=== PATIENT | female | born 1940 | race Caucasian/White ===

== ENCOUNTER → 2017-04-02 | Day surgery (SDC) | payer MEDICARE, OTHER ==
[~2017-04-02] VITALS: Ht 170.2 cm; Wt 84.1 kg
[~2017-04-02] MED LIST: ASPI-973 PO; Bupivacaine-MPF 0.5% 30 mL Inj INFILTRATE ONE; CA C1TAB83 PO; CHOL10008 PO; CYAN500L4 PO; CeFAZolin 2 Gm/50 mL D5W Duplex Bag IV ONE; CeFAZolin Inj 2 GM in IV Premix 1 EACH IV ONE; Dexamethasone 4 mg/mL Inj IVPUSH PRN; EPHEDrine Sulfate 50 mg/mL Inj IVPUSH PRN; HYDROmorphone 1 mg/mL Inj IVPUSH PRN; LISI2.5T PO; Lactated Ringer's 1,000 ML IV ONE; Lactated Ringer's 1,000 ML IV SCH; Lactated Ringer's 500 ML IV PRN; MAGN250T29 PO; MELA5TAB14 PO; METF500T4 PO; METH5TAB3 PO; METO-386 PO; MetoCLOpramide 5 mg/mL 2 mL Inj IVPUSH PRN; NPH,100V11 SUBQ; Ondansetron 2 mg/mL 2 mL Inj IVPUSH PRN; Phenylephrine 10,000 mCg/mL Inj IVPUSH PRN; Propofol 10,000 mCg/mL 20 mL Inj ONE; [UNRECOGNIZED DRUG - OTHER] RIGHT_EYE; fentaNYL-PF 50 mCg/mL 2 mL Inj IVPUSH PRN; fentaNYL-PF 50 mCg/mL 2 mL Inj ONE
--- NOTE | 2017-04-02 05:59 | PCM.HPANE ---
Patient Data Surgeon Admitting Provider: Attending Provider:Paul Cartwright MD Primary Care Physician:Kory Ruvalcaba MD Other Provider:[facility] Anesthesia Reason for Visit Right Thumb Nodule Ht/WT & BMI Height (Feet): 5 Height (Inches): 7 Weight (Kilograms): 81.6 Body Mass Index 28.00 Allergies Coded Allergies: No Known Allergies (Unverified , 03/31/17) Past Anesthesia History Anesthesia History: Denies:: Abnormal Airway, Anesthesia Reactions, Difficult Intubation, Fam Anesthesia Reaction, Malignant Hyperthermia Diabetes History Hx Diabetes?: Yes Type of Diabetes: Type II Glycemic Control: Insulin & Oral Medication Current Bedside Blood Glucose: 89 MRSA MRSA: No Medications Blood Thinner: Aspirin Last Dose Blood Thinner: Mar 31, 2017 Hypertension Medication: Yes (Metoprolol) Home Meds Incl Beta Andrew: Yes Reported Medications Cholecalciferol (Vitamin D3) (Vitamin D3)1,000 Unit Tab.chew1,000 Unit PO DAILY 03/31/17 Cyanocobalamin (Vitamin B-12) (Vitamin B-12)500 Mcg Omqnarw548 Mcg PO QPM 03/31/17 Magnesium Oxide (Magnesium)250 Mg Ioller055 Mg PO DAILY 03/31/17 Ca Carbonate/Vitamin D3/Vit K (Calcium + D Soft Chewable Tab)1 Each Tab.chew1 Each PO DAILY 03/31/17 Melatonin 5 Mg Tablet5 Mg PO DAILY 03/31/17 Lisinopril 2.5 Mg Tablet2.5 Mg PO DAILY 30 Days Ref 0 03/31/17 Metformin 500 Mg Imbgrt734 Mg PO BID Ref 0 03/31/17 NPH, Human Insulin Isophane (HUMulin-N U100 Insulin Vial)100 Unit/1 Ml Vial30 Unit SUBQ QAM #1 VIAL Ref 0 03/31/17 NPH, Human Insulin Isophane (HUMulin-N U100 Insulin Vial)100 Unit/1 Ml Vial20 Unit SUBQ QPM #1 VIAL Ref 0 03/31/17 Aspirin 81 Mg Vdwkik67 Mg PO DAILY Ref 0 03/31/17 [halima] No Conflict Check1 Drop RIGHT_EYE BID 03/31/17 Metoprolol Succinate ER 25 Mg Tab.er.24h25 Mg PO DAILY Ref 0 03/31/17 Discontinued Reported Medications Methadone 5 Mg Tablet5 Mg PO Q6H 03/31/17 Brimonidine/Timolol-Expunged, Do Not Renew! (Combigan-Expunged Drug, Do Not Renew)5 Ml Drops5 Ml OP DAILY Rt eye 08/15/10 Brimonidine/Timolol-Expunged, Do Not Renew! (Combigan-Expunged Drug, Do Not Renew)5 Ml Drops5 Ml OP DAILY 08/15/10 Hydrocod/APAP-Expunged, Do Not Renew! (VICODIN 5/500-Expunged Drug, Do Not Renew )1 Udtab Tablet1 Udtab PO q4 prn 08/15/10 Amitriptyline-Expunged Drug, Do Not Renew! 25 Mg Mlzljc41 Mg PO DAILY 08/15/10 Insulin NPH-Expunged Drug, Do Not Renew! (Cwxbuzg-S-[place] Drug, Do Not Renew! )100 Unit/Ml Unit20 U Sq Hs 08/15/10 Insulin NPH-Expunged Drug, Do Not Renew! (Zbzbgsb-D-[place] Drug, Do Not Renew! )100 Unit/Ml Unit30 U Sq Am 08/15/10 Aspirin-Expunged Drug, Do Not Renew! (Aspirin EC-Expunged Drug, Do Not Renew!) 81 Mg Layzuc98 Mg PO DAILY 08/15/10 Methadone-Expunged Drug, Do Not Renew! (Dolophine-Expunged Drug, Do Not Renew!) 5 Mg Tablet5 Mg PO Q6 prn 08/15/10 Lorazepam-Expunged Drug, Do Not Renew! 1 Mg Tab1 Mg PO PRN 08/15/10 Anastrozole-Expunged Drug, Do Not Renew! (Arimidex-Expunged Drug, Do Not Renew!) 1 Mg Tablet1 Mg PO DAILY pt unsure of dose/will bring 08/15/10 Sertraline-Expunged Drug, Choose New Med! 100 Mg Wentdo528 Mg PO DAILY 08/15/10 Atenolol-Expunged Drug, Do Not Renew! 25 Mg Lnknkk73.5 Mg PO AM 08/15/10 History History of ENT Problems?: Yes HEENT History: Positive for:: Cataracts (Hx Detached Retina x 2) Denies:: Abnormal Airway Difficult Intubation Dysphagia Hearing Problem Sinus Problem Denture Type: None Teeth Condition: Within Normal Limits Hx of Heart Problems?: Yes Cardiovascular History: Positive for:: Hypertension (on Lisinopril,Metoprolol- yesterday) Hx of Respiratory Problem?: No Respiratory History: Denies:: Use of C-PAP Machine Use of Inhalers / NEBS Hx Neurologic Problems?: No Hx of GI Problems?: No Hx of Problems?: Yes Genitourinary History: Denies:: HX of Hemodialysis Kidney Stones Urinary Tract Infection HX of Peritoneal Dialysis: No Female Hx: Positive for:: Problems with Breasts? (hx breast ca Lt) Denies:: Currently Skin History: Denies:: History Skin Disorders? Pressure Ulcers Hx Musculoskeletal Problems?: Yes Musculoskeletal History: Denies:: Back Injury (two back surgery lumbar area) Degenerative Joint Joint Replacement Musculoskeletal Trauma Osteoarthritis Rheumatoid Arthritis Systemic Lupus Hx of Psycho/Social Problems?: No Psycho Social History: Positive for:: Hx Depression Hx Surgeries?: Yes (CARSON, Lt Breast lumpectomy, Rollins Cath, Detached Retina x 2, Eye laser,) Hx Any Other Health Problems?: Yes Other History: Positive for:: Cancer (breast lt, Ovarian Ca.) Hospitalization (Hypokalemia) Denies:: Thyroid Disease History Blood Transfusions: Positive for:: Accept Blood Products? Blood Transfusions Denies:: Blood Transfuse Reaction Hx Diabetes: Yes Hx Alcohol Use: NoHx Substance Use: NoHave You Smoked inLast 12 mo: No Stop/Bang S-Snoring: Do You Snore Loudly: No T-Tired: feel tired, fatigued: Yes O-Obsered: Observed not breath: No P-Blood Pressure: treated: Yes B- Body Mass Index > 35 kg/m2: No A- Age over 50: Yes N- Neck Large Circumference: No G- Gender Male: No MATTIE Total Score: 3 MATTIE Risk Assessment: Low Risk, <3 Yes Risk Assessment Category Category 1A: Patient has history of documented sleep apnea, and HAS NOT received any narcotic, sedative or anesthesia administration during this stay. Category 1B: Patient has history of documented sleep apnea, and HAS received any narcotic , sedative or anesthesia administration during this stay Category 2: Patient has SUSPECTED Obstructive Sleep Apnea, and HAS received any narcotic , sedative or anesthesia administration during this stay. Category 3: Patient has SUSPECTED Obstructive Sleep Apnea and HAS NOT received narcotic, sedative or anesthesia administration during this stay. Category 4: Outpatient in Procedural Areas with known sleep apnea or who screen positive for High Risk via the STOP/BANG questionnaire. Exam Exam General Appearance: Alert HEENT/AIRWAY: MP 2 Lungs: Clear to Auscultation Heart: Exam Unremarkable Meds/Labs/Diagnostics Bedside Blood Glucose: 89 Plan Impression Patient chart reviewed, patient interviewed and anesthestic plan with risks, benefits, and alternatives discussed, and informed consent obtained. NPO per Anesth. Guidelines: Yes ASA Physical Status: ASA3 Severe Disease Anesthetic Plan: GA, MAC (GA as backup) Bene/Risks/Altern/Consents: Yes HP Complete Prior to Induction: Yes Leonora Sharp MD Apr 02, 2017 05:59
[2017-04-02 07:20] VITALS: BP 118/58; PULSE 70; RESP 16; O2SAT 97
[2017-04-02 09:37] VITALS: BP 144/65; PULSE 65; RESP 16; O2SAT 99
[2017-04-02 10:08] VITALS: BP 141/59; PULSE 63; RESP 16; O2SAT 98
--- NOTE | 2017-04-02 10:33 | PCM.ANEP1 ---
Post Anesthesia PACU Phase 1 Assessment Vital Signs Vital Signs Date Time Temp Pulse Resp B/P Pulse Ox O2 Delivery O2 Flow Rate FiO2 04/02/17 10:08 63 16 141/59 98 Room Air 04/02/17 09:37 65 16 144/65 99 Room Air 04/02/17 07:20 36.1 70 16 118/58 97 Room Air Anesthetic Administered: MAC Level of Alertness: Awake, talking CABA's with Equal Strength: Yes Pain: No Nausea or Vomiting: No CV Function & Hydration Stable: Yes Airway Device: Oxygen Delivery: Room Air Lungs: Clear to Auscultation PACU Phase 2 Assessment Complications: No Follow up Care: No Patient Instructions Provided: Yes Leonora Sharp MD Apr 02, 2017 10:33
--- NOTE | 2017-04-02 13:01 | OP ---
[address] [address] OPERATIVE REPORT PATIENT: CÉSAR RENEE : 1940 MR#: [id number] ADMIT: 04/02/2017 JOB ID: [id number] DATE OF SURGERY: 04/02/2017 PREOPERATIVE DIAGNOSIS(ES): Right thumb mass, likely a mucous cyst. POSTOPERATIVE DIAGNOSIS(ES): Right thumb mass, likely a mucous cyst. PROCEDURE: 1. Excision of right thumb mass. 2. Debridement of right thumb and of phalangeal joint. SURGEON: Paul Cartwright MD PATIENT ACCESS DIRECTOR: None. ANESTHESIA: MAC with local. ESTIMATED BLOOD LOSS: Minimal. SPECIMEN: Right thumb mass to Pathology. COMPLICATIONS: None apparent. INDICATIONS FOR PROCEDURE: This is a 76-year-old female patient with a right thumb nodule. The patient reports that the nodule waxes and wanes in size and drains a clear drainage. The patient also has episodes of recurrent inflammation and infection. At this point excision of the mass is indicated. PROCEDURE AND FINDINGS: The patient was identified in the preoperative area. Surgical site was marked. The patient was then taken back to the operating room and placed supine on the operating table. Appropriate time-outs were taken. MAC was induced smoothly. The patient was then prepped and draped in the usual sterile manner. The patient's right thumb was then localized with 1% lidocaine and 0.25% Marcaine. The right thumb was then exsanguinated and a small finger tourniquet placed at the base of the finger. It was noted that patient has an approximately 7-8 mm subcutaneous mass on the radial dorsal aspect of the distal phalanx longterm between the eponychial fold and the joint crease. A small ellipse was designed over the mass as the skin over the central portion of the mass was quite attenuated. The ellipse was then extended proximally along the midline past the IP crease. Incisions were made with a #15 blade just through the skin. I first turned my attention to the vertical portion of the incision over the IP crease. This was deepened down to the subcutaneous tissue. I then dissected from a proximal to distal manner toward the mass. It was noted that the skin was irritated and thickened around the mass. Significant inflammation and scarring. The skin was dissected off of the mass on both sides. The mass was then elevated off of the underlying tissue and passed off to Pathology as a specimen. Once this had been done, the surgical site was examined. It was noted that there was some residual cystic mass that is quite sessile, deep to the specimen that was removed. I first turned my attention to the proximal portion of the surgical site and the extensor apparatus was identified. I then elevated the residual sessile cystic lesion off of the mass. This was also passed off to Pathology as a specimen. At this point, I made an incision on the radial border of the extensor apparatus, down into the joint. A small cuff of the dorsal capsule was removed from the dorsal radial aspect of the IP joint to expose the joint. There was some degenerative tissue that was removed. Bone spurs were debrided with the rongeur until this area was smoothed. At this point the tourniquet was released and hemostasis was obtained with bipolar electrocautery. The incision was then reapproximated using several 5-0 Prolene horizontal mattress sutures. The patient tolerated the procedure well. Needle count, sponge count, and instrument counts were correct at the end of the procedure. The patient was transported to recovery in stable condition. SAMANTHA
--- NOTE | 2017-04-09 14:34 | PATH ---
SURGICAL PATHOLOGY Attending Physician:Paul Cartwright CASE STATUS: Signed Out PATIENT NAME: CÉSAR RENEE PID: [id number] : 1940 DATE COLLECTED:04/02/2017 21:14 SPECIMEN: Skin, biopsy CLINICAL HISTORY: RIGHT THUMB NODULE 1). RIGHT THUMB NODULE FINAL DIAGNOSIS: 1.RIGHT THUMB NODULE, BIOPSY: CONSISTENT WITH VIRAL WART. PERINEURAL FIBROSIS AND MILD CHRONIC INFLAMMATION. NEGATIVE FOR MALIGNANCY. ICD10: B07, L98.9 KENN, 04/09/2017 NOTE: As part of a routine quality control assessor, this case has been reviewed by dermatopathologist Dr. Paul, who agrees with the interpretation. GROSS DESCRIPTION: The specimen is received in one formalin filled container labeled with the patient's name, sublabeled "right thumb nodule" and consists of a 0.6 x 0.4 x 0.4 skin reynoso-enriquez crusted ovoid portion of tissue which is inked blue, trisected and entirely submitted in cassette A. also received are 2 pink-reynoso to reynoso enriquez friable portions of tissue which aggregate to 0.6 x 0.4 x 0.2 CM. The specimen is inked blue and entirely submitted in cassette B. 04/02/2017DC MICRO DESCRIPTION: See diagnosis. ICD-9 CODES: CPT CODES: 1: 56191 Electronically Signed Out Sandra Mena M.D.,[facility] [address], [place] [address] Technical component performed at [facility], [facility] [address], [place], [address]
== END | disposition home or self-care (01) ==
LOC: SAS 06:50
PROVIDERS: ATTEND Plastic Surgery
DX: L98.9 Disorder of the skin and subcutaneous tissue, unspecified (principal); B07.0 Plantar wart; M77.8 Other enthesopathies, not elsewhere classified; I10 Essential (primary) hypertension; E11.9 Type 2 diabetes mellitus without complications; F32.9 Major depressive disorder, single episode, unspecified; Z85.3 Personal history of malignant neoplasm of breast; Z85.43 Personal history of malignant neoplasm of ovary; Z79.82 Long term (current) use of aspirin; Z79.84 Long term (current) use of oral hypoglycemic drugs; Z79.4 Long term (current) use of insulin
CPT/HCPCS: 11044; 26115; J0690; J2250; J2704; J3010; J7120